=== PATIENT | male | born 1970 | race Caucasian/White ===

== ENCOUNTER 2024-08-25 14:13 | Emergency (ER) | payer BC, SELFPAY ==
[2024-08-25 14:18] VITALS: BP 165/96
[2024-08-25 15:07] LABS: ALT (SGPT) 173 U/L (0-50); AST (SGOT) 108 U/L (17-59); Albumin 5.1 g/dl (3.5-5.0); Alkaline Phosphatase 59 U/L (38-126); Blood Urea Nitrogen 30 mg/dl (9-20); Calcium 9.8 mg/dl (8.4-10.2); Carbon Dioxide 24 mmol/L (22-30); Chloride 105 mmol/L (98-107); Glucose 343 mg/dl (70-99); Lipase 92 U/L (23-300); Potassium 4.7 mmol/L (3.5-5.1); Sodium 140 mmol/L (135-145); Total Bilirubin 0.8 mg/dl (0.2-1.3); Total Protein 8.3 g/dl (6.3-8.2); eGFR > 60.00
[2024-08-25 15:08] LABS: Hematocrit 40.9 % (39.0-52.0); Hemoglobin 14.7 g/dL (13.0-18.0); Mean Corp Hgb Conc. 35.9 g/dL (33.0-37.0); Mean Corpuscular Hgb 31.3 pg (27.0-31.0); Mean Corpuscular Volume 87.2 fL (80.0-94.0); Red Blood Cell Count 4.69 10^6/uL (4.70-6.10); Red Cell Dist. Width 11.9 % (11.5-14.5); White Blood Cell Count 9.2 10^3/uL (4.8-10.8)
[2024-08-25 15:32] LABS: % Eosinophils 1.6 % (0-6); % Immature Granulocytes 0.5 % (0-0.5); % Lymphocytes 18.6 % (20.5-51.1); % Monocytes 7.7 % (1.7-9.3); % Neutrophils 70.6 % (42.2-75.2); Absolute Basophils 0.1 10^3/uL (0-0.2); Absolute Eosinophils 0.2 10^3/uL (0-0.7); Absolute Immature Granulocytes 0.1 10^3/uL (0-0.05); Absolute Lymphocytes 1.7 10^3/uL (1.2-3.4); Absolute Monocytes 0.7 10^3/uL (0.1-0.6); Absolute Neutrophils 6.5 10^3/uL (1.4-6.5); Mean Platelet Volume 13.8 fL (7.4-10.4); Nucleated Red Blood Cells % 0 % (-); Platelet Count 56 10^3/uL (130-400)
[2024-08-25 16:34] VITALS: BMI 36.0
--- NOTE | 2024-08-25 16:43 | ED.GENMED ---
History of Present Illness
<Mike Howell PA-C - Last Filed: 08/25/24 17:02>
General
Chief Complaint: Abdominal Pain
Source: patient
Time Seen by Provider: 08/25/24 16:03
History of Present Illness
History of Present Illness:
54-year-old male presenting to the emergency department for evaluation of sudden onset right-sided flank pain that began about 3 hours prior to arrival accompanied with nausea and vomiting, pain described to be constant sharp and severe, radiating
from the right flank towards the right groin area. States had a history of similar about 30 years ago which was a kidney stone and states this feels similar. Denies any fevers, chills, rigors, urinary symptoms or bowel changes. Patient did not
take anything for symptoms prior to arrival.
Past History
<CHAYO Briceño Last Filed: 08/25/24 17:02>
Past History
ED Past Medical History: Other (psoriasis ); Negative Arrthythmia or CAD
ED Past Surgical History: Orthopedic and Tonsilectomy; Negative Cardiac
Social History
Tobacco: Non-smoker
Alcohol: Daily (6-7 beers)
Drug: None
Personal:
Living: with family
Employment: Employed
Family History
Family History: CAD and Cancer
Review of Systems
<CHAYO Briceño Last Filed: 08/25/24 17:02>
Review of Systems
All Other Systems: ROS reviewed and negative except as documented in HPI and ROS
Phy Exam
<CHAYO Briceño Last Filed: 08/25/24 17:02>
Physical Exam
Physical Exam:
GENERAL: Alert , in no apparent distress but does appear uncomfortable
EYE: clear conjunctiva b/l
HEAD: NCAT
ENT: o/p clr, mmm.
CARDIAC: Regular rate and rhythm .
LUNGS: Clear breath sounds bilaterally, no acute respiratory distress, no wheezes/rales/rhonchi
ABDOMEN: Soft, without focal tenderness, no r/g, right CVA tenderness
NEUROLOGICAL: Alert and oriented
SKIN: Warm and dry, skin intact.
MUSCULOSKELETAL: well perfused.
PSYCH: Normal and appropriate interaction.
Scores
<Mike Howell PA-C - Last Filed: 08/25/24 17:02>
Heart Failure Risk
Heart Failure Risk Score: Not Applicable
Heart Score for Chest Pain Patients
STEMI patient?: Not applicable
Withdrawal Assessment of Alcohol
Withdrawal Assessment Completed?: Not applicable
Course
<Mike Howell PA-C - Last Filed: 08/25/24 17:02>
Orders/Labs/Results
Orders:
Orders
08/25/24 14:38
Complete Blood Count/With Diff Urgent
Comprehensive Metabolic Panel Urgent
Lipase Urgent
08/25/24 16:42
CT Abd/pel Without Iv Or Oral Urgent
Comment:
Reason For Exam: right flank pain
0.9% Sodium Chloride 1000 ml [Nss] 1,000 ml IV BOLUS
Ketorolac [Toradol] 30 mg IV NOW STA
08/25/24 18:11
Urinalysis Reflex To Culture Urgent
Date Specimen was Collected: 08/25/24
Time Specimen was Collected: 18:10
Urine Microscopic Reflex Cult Urgent
Abnormal Lab Results
08/25/24 08/25/24
14:38 18:11
RBC 4.69 L 10^6/uL
(4.70-6.10)
MCH 31.3 H pg
(27.0-31.0)
Plt Count 56 L 10^3/uL
(130-400)
MPV 13.8 H fL
(7.4-10.4)
Abs Immat Gran (auto) 0.1 H 10^3/uL
(0-0.05)
Absolute Monos (auto) 0.7 H 10^3/uL
(0.1-0.6)
Lymphocytes % 18.6 L %
(20.5-51.1)
BUN 30 H mg/dl
(9-20)
Glucose 343 H mg/dl
(70-99)
AST 108 H U/L
(17-59)
ALT 173 H U/L
(0-50)
Total Protein 8.3 H g/dl
(6.3-8.2)
Albumin 5.1 H g/dl
(3.5-5.0)
Urine Ketones 2+ A
(Negative)
Urine Bacteria (Reflex) Few A
(Negative)
Urine Glucose 4+ A
(Negative)
Urine Albumin (Reflex) 1+ A
(Neg - Trace)
08/25/24 14:38
08/25/24 14:38
Vital Signs
Initial and Last Documented VS:
Initial Vital Signs
Temp Pulse Resp BP Pulse Ox
98.6 F 74 18 165/96 97
08/25/24 14:18 08/25/24 14:18 08/25/24 14:18 08/25/24 14:18 08/25/24 14:18
Last Documented Vital Signs
Temp Pulse Resp BP Pulse Ox
98.6 F 86 16 156/87 96
08/25/24 14:18 08/25/24 17:47 08/25/24 17:47 08/25/24 17:47 08/25/24 17:47
Sitalt;Salvatore Chandler PA-C - Last Filed: 08/25/24 18:35>
Orders/Labs/Results
Orders:
Orders
08/25/24 14:38
Complete Blood Count/With Diff Urgent
Comprehensive Metabolic Panel Urgent
Lipase Urgent
08/25/24 16:42
CT Abd/pel Without Iv Or Oral Urgent
Comment:
Reason For Exam: right flank pain
0.9% Sodium Chloride 1000 ml [Nss] 1,000 ml IV BOLUS
Ketorolac [Toradol] 30 mg IV NOW STA
08/25/24 18:11
Urinalysis Reflex To Culture Urgent
Date Specimen was Collected: 08/25/24
Time Specimen was Collected: 18:10
Urine Microscopic Reflex Cult Urgent
Abnormal Lab Results
08/25/24 08/25/24
14:38 18:11
RBC 4.69 L 10^6/uL
(4.70-6.10)
MCH 31.3 H pg
(27.0-31.0)
Plt Count 56 L 10^3/uL
(130-400)
MPV 13.8 H fL
(7.4-10.4)
Abs Immat Gran (auto) 0.1 H 10^3/uL
(0-0.05)
Absolute Monos (auto) 0.7 H 10^3/uL
(0.1-0.6)
Lymphocytes % 18.6 L %
(20.5-51.1)
BUN 30 H mg/dl
(9-20)
Glucose 343 H mg/dl
(70-99)
AST 108 H U/L
(17-59)
ALT 173 H U/L
(0-50)
Total Protein 8.3 H g/dl
(6.3-8.2)
Albumin 5.1 H g/dl
(3.5-5.0)
Urine Ketones 2+ A
(Negative)
Urine Bacteria (Reflex) Few A
(Negative)
Urine Glucose 4+ A
(Negative)
Urine Albumin (Reflex) 1+ A
(Neg - Trace)
08/25/24 14:38
08/25/24 14:38
Vital Signs
Initial and Last Documented VS:
Initial Vital Signs
Temp Pulse Resp BP Pulse Ox
98.6 F 74 18 165/96 97
08/25/24 14:18 08/25/24 14:18 08/25/24 14:18 08/25/24 14:18 08/25/24 14:18
Last Documented Vital Signs
Temp Pulse Resp BP Pulse Ox
98.6 F 86 16 156/87 96
08/25/24 14:18 08/25/24 17:47 08/25/24 17:47 08/25/24 17:47 08/25/24 17:47
<Mike Howell PA-C - Last Filed: 08/25/24 17:02>
MDM/Problems Addressed
Differential Diagnosis Includes:
- Renal/ureteral colic/ureterolithiasis
- Cystitis
- Pyelonephritis
- Muscular etiology
- Cholecystitis
- Appendicitis
MDM/Problems Addressed:
54-year-old male presenting the ER for evaluation of sudden onset right flank pain with nausea and vomiting. Labs were ordered on arrival which shows no leukocytosis however patient does have a thrombocytopenia, has not had any labs here currently
to assess whether this is new or old. He has a glucose of 343 signifying he likely has diabetes as well as AST and ALT are elevated which could be related to patient's daily alcohol use. Will treat pain with Toradol 30 mg IV and normal saline. CT
of the abdomen pelvis ordered. Reassessment following.
<Mike Howell PA-C - Last Filed: 08/25/24 17:02>
*Pulse Oximetry
SaO2: 97
Oxygen Mode of Delivery: Room air
Patient hypoxic: no
<Salvatore Chandler PA-C - Last Filed: 08/25/24 18:35>
*Critical Care Note
Total Time (30-74mins, 75-104mins- exclusive of procedures): Not Applicable
<Mike Howell PA-C - Last Filed: 08/25/24 17:02>
Comment
Comment:
Anion gap 11, no acidosis
<Salvatore Chandler PA-C - Last Filed: 08/25/24 18:35>
Update Note
Update Note:
Received care of patient upon signout pending CT scan. CT demonstrates a chain of approximately 5 stones in the distal right ureter causing mild hydronephrosis. Urinalysis without infection. Patient is a known type II diabetic and has elevated
serum glucose here. He also has known elevated LFTs. Importance of follow-up with family doctor was just with patient regarding his abnormal findings. Patient feeling much better after medication. Will discharge home with supportive care and
urology follow-up for his kidney stones
ED Attending Note
<Mike Howell PA-C - Last Filed: 08/25/24 17:02>
-
Portions of this chart may have been created with voice recognition software.� Occasional wrong word or��sound alike� substitutions may have occurred due to the inherent limitations of voice recognition software.
Discharge Plan
Departure
Patient Disposition: Home (Routine Discharge)
Date of Disposition: 08/25/24
Time of Disposition: 18:32
Patient with high blood pressure during this ER visit?: No
Discharge Problem:
Kidney stone, Acute hyperglycemia
Instructions: Renal Colic (DC)
Prescriptions:
New
ibuprofen 600 mg tablet
600 mg PO Q8H PRN (Reason: Pain) Qty: 20 0RF
tamsulosin [Flomax] 0.4 mg capsule
0.4 mg PO DAILY Qty: 14 0RF
ondansetron 4 mg tablet,disintegrating
4 mg PO Q8H PRN (Reason: nausea and vomiting) Qty: 10 0RF
No Action
etanercept [Enbrel] 50 MG/ML syringe
50 mg SQ Q2W
aspirin 81 MG tablet,delayed release (DR/EC)
162 mg PO ONCE
calcium carbonate [Tums] 200 MG tablet,chewable
800 mg PO ONCE
Referrals:
Tha Corrales MD [Family Provider, Internal Medicine]
Geronimo Weaver MD [Active, Urology]
Activity Restrictions/Additional Instructions:
Take medication as directed. Drink plenty of fluids. Return here for increasing pain fever vomiting otherwise follow-up with urology regarding kidney stones. Also please follow-up with your family doctor regarding elevated serum glucose and liver
function testing
Interventions
Interventions:
*Risk Screen - Suicide Last Done: 08/25/24 16:35
*General Assessment Last Done: 08/25/24 16:35
*Neglect/Abuse Screening Last Done: 08/25/24 16:35
*ED- Fall Risk Assessment Last Done: 08/25/24 16:35
*ED COVID-19 Vaccine History Last Done: 08/25/24 16:35
EY-Gsirxd-Vjcllvzluu Assessment Last Done: 08/25/24 16:54
Discharge Date and Time
Print Language: MACEDONIAN
[2024-08-25] MEDS: NSS 1000 IV (16:52)
[2024-08-25] MEDS: TORADOL 30 MG IV (16:52)
[2024-08-25 16:56] VITALS: BP 167/80
[2024-08-25 17:47] VITALS: BP 156/87
--- NOTE | 2024-08-25 18:15 | EDRN ---
Urine spec obtained and sent at this time.
--- NOTE | 2024-08-25 18:15 | EDRN ---
Chen LEOS in room conversing w/ pt about CT results.
[2024-08-25 18:21] LABS: Urine Albumin 1+ (Neg - Trace); Urine Bilirubin Negative (Negative); Urine Character Clear (Clear); Urine Color Yellow; Urine Glucose 4+ (Negative); Urine Ketone 2+ (Negative); Urine Leukocyte Negative (Negative); Urine Nitrite Negative (Negative); Urine Occult Blood Negative (Negative); Urine Specific Gravity 1.015 (<1.030); Urine Urobilinogen Negative (Neg - 1+)
[2024-08-25 18:28] LABS: Urine Bacteria Few (Negative); Urine Red Blood Cell 0-2 /HPF (0-2); Urine Squamous Cell 0-2 /LPF (Few); Urine White Cell 0-2 /HPF (0-5)
== END 2024-08-25 19:07 | disposition home or self-care (01) ==
LOC: EMR 14:13
PROVIDERS: Emergency Medicine; Physician Assistant Medical; EMERGENCY PHYSICIAN Student in an Organized Health Care Education/Training Program; FAMILY PHYSICIAN Internal Medicine
DX: N20.2 Calculus of kidney with calculus of ureter (principal); R11.2 Nausea with vomiting, unspecified; D69.6 Thrombocytopenia, unspecified; R73.09 Other abnormal glucose; Z87.442 Personal history of urinary calculi; Z88.6 Allergy status to analgesic agent; Z88.1 Allergy status to other antibiotic agents
CPT/HCPCS: 99284; 96374; 74176; 80053; 81003; 81015; 83690; 85025